=== PATIENT | male | born 1995 | race Asian ===

== ENCOUNTER 2019-05-23 23:05 | Emergency (ER) | payer BC ==
[2019-05-23 23:15] VITALS: BP 123/69
[2019-05-23] MEDS ORDERED: ONDANSETRON ODT 4 MG TAB.RAPDIS. PO ONE (23:45)
[2019-05-23] MEDS ORDERED: diazePAM 5 MG TABLET PO ONE (23:45)
[2019-05-23] MEDS ORDERED: predniSONE 20 MG TABLET PO ONE (23:45)
[2019-05-23] MEDS ORDERED: NAPROXEN 500 MG TABLET PO ONE (23:45)
--- NOTE | 2019-05-23 23:45 | PHYS DOC ---
Past Medical History Past Medical History: No Pertinent History Past Surgical History: No Surgical History Alcohol Use: None Adult General Chief Complaint Chief Complaint: HEADACHE HPI HPI Patient is a 24 year old male patient with no significant medical history who presents to the ED today complaining over 10 out of 10 generalize headache with intermittent episodes of nausea and vomiting that began gradually this afternoon while working. Patient denies this being the worst headache in his life. He states the headache was a gradual onset. He reports his had similar headaches before. Patient reports is going through a lot of stress most of it being life related. He reports he usually has to wake up early, got to school then from school got to work and his up for very long hours. Review of Systems Review of Systems Constitutional: Denies fever or chills [] Eyes: Denies change in visual acuity, redness, or eye pain [] HENT: Denies nasal congestion or sore throat [] Respiratory: Denies cough or shortness of breath [] Cardiovascular: No additional information not addressed in HPI [] GI: Reports nausea and vomiting. Denies abdominal pain, bloody stools or diarrhea [] : Denies dysuria or hematuria [] Musculoskeletal: Denies back pain or joint pain [] Integument: Denies rash or skin lesions [] Neurologic: Reports headache Denies focal weakness or sensory changes [] Endocrine: Denies polyuria or polydipsia [] All other systems were reviewed and found to be within normal limits, except as documented in this note. Current Medications Current Medications Current Medications Medications (Trade) Dose Ordered Sig/Franci Start Time Stop Time Status Last Admin Dose Admin Diazepam (Valium) 5 mg 1X ONCE 05/23/19 23:45 05/23/19 23:46 DC 05/23/19 23:37 5 MG Naproxen (Naprosyn) 500 mg 1X ONCE 05/23/19 23:45 05/23/19 23:46 DC 05/23/19 23:38 500 MG Ondansetron HCl (Zofran Odt) 4 mg 1X ONCE 05/23/19 23:45 05/23/19 23:46 DC 05/23/19 23:38 4 MG Prednisone (Prednisone) 60 mg 1X ONCE 05/23/19 23:45 05/23/19 23:46 DC 05/23/19 23:38 60 MG Allergies Allergies Allergies Coded Allergies Type Severity Reaction Last Updated Verified No Known Drug Allergies 05/23/19 No Physical Exam Physical Exam Constitutional: Well developed, well nourished, no acute distress, non-toxic appearance. [] HENT: Normocephalic, atraumatic, bilateral external ears normal, oropharynx moist, no oral exudates, nose normal. [] Eyes: PERRLA, EOMI, conjunctiva normal, no discharge. [] Neck: Normal range of motion, no tenderness, supple, no stridor. [] Cardiovascular:Heart rate regular rhythm, no murmur [] Lungs & Thorax: Bilateral breath sounds clear to auscultation [] Abdomen: Bowel sounds normal, soft, no tenderness, no masses, no pulsatile masses. [] Skin: Warm, dry, no erythema, no rash. [] Back: No tenderness, no CVA tenderness. [] Extremities: No tenderness, no cyanosis, no clubbing, ROM intact, no edema. [] Neurologic: Alert and oriented X 3, normal motor function, normal sensory fu nction, no focal deficits noted. [] Psychologic: Affect normal, judgement normal, mood normal. [] Current Patient Data Vital Signs Vital Signs Date Time Temp Pulse Resp B/P (MAP) Pulse Ox O2 Delivery O2 Flow Rate FiO2 05/23/19 23:15 98.8 62 20 123/69 (87) 99 Room Air 98.8 EKG EKG [] Radiology/Procedures Radiology/Procedures [] Course & Med Decision Making Course & Med Decision Making Pertinent Labs and Imaging studies reviewed. (See chart for details) This is a 24-year-old male patient presenting to the ED today with a generalized headache with nausea and vomiting that began this afternoon. Patient reports being under a lot of stress. Ct of the head is negative. We will manage his head in the ED and send him home. We talked about stress management. Provided follow-up information. Discharged in stable condition. Dragon Disclaimer Dragon Disclaimer This electronic medical record was generated, in whole or in part, using a voice recognition dictation system. Departure Departure Impression: Primary Impression: Headache Additional Impression: Stress Disposition: HOME, SELF-CARE Condition: STABLE Referrals: FAROOQ WANG MD follow up in 1-2 weeks Patient Instructions: Headache, FAQs, Stress Additional Instructions: You were evaluated in the emergency room for a headache. We highly recommend you follow-up with your own primary care doctor or the provided doctor, consider managing stress. Consider creating time to rest and sleep. Your CAT scan of the head is negative for any acute findings. Problem Qualifiers Primary Impression: Headache Headache type: unspecified Headache chronicity pattern: acute headache Intractability: not intractable Qualified Codes: R51 - Headache GILLIANCarlosDEN PAULSON May 23, 2019 23:45
--- NOTE | 2019-05-24 00:19 | RAD ---
CT head without contrast: Reason for examination: Headache. Axial images were obtained through the brain. No contrast was administered. Reconstruction was performed in coronal plane. Exposure: One or more of the following individualized dose reduction techniques were utilized for this examination: 1. Automated exposure control 2. Adjustment of the mA and/or kV according to patient size 3. Use of iterative reconstruction technique. Ventricular systems are symmetric and not abnormally dilated. No midline shift is seen. There is no evidence of intracranial hemorrhage, infarct, mass or edema. No abnormalities of seen at the orbits. The paranasal sinuses and mastoid air cells are clear. No acute skull abnormality is seen. IMPRESSION: No acute intracranial abnormality evident. Electronically signed by: Kaela Perla MD (05/24/2019 12:16 AM) [facility]
== END 2019-05-24 00:41 | disposition home or self-care (01) ==
LOC: ER 23:05
DX: R51 Headache (principal); R11.2 Nausea with vomiting, unspecified; F43.9 Reaction to severe stress, unspecified
CPT/HCPCS: 70450; 99284; J7512; Q0162